=== PATIENT | male | born 1940 | race Caucasian/White ===

== ENCOUNTER → 2023-10-31 | Outpatient (REF) | payer MEDICARE, BC ==
[2023-10-31 13:46] LABS: IMMUNOGLOBULIN A 199.6 MG/DL (40-350); IMMUNOGLOBULIN G 920 MG/DL (650-1600)
== END ==
LOC: M LAB REF 12:44
PROVIDERS: ATTEND Internal Medicine Pulmonary Disease
DX: J47.9 Bronchiectasis, uncomplicated (principal)

== ENCOUNTER → 2023-12-16 | Outpatient (CLI) | payer MEDICARE, BC | LOC: EDUNIT# 11-20 11:00 → M CARPUL 10:29 | PROVIDERS: ATTEND Internal Medicine Pulmonary Disease | DX: R06.00 Dyspnea, unspecified (principal) ==

== ENCOUNTER → 2023-12-25 | Outpatient (CLI) | payer MEDICARE, BC ==
[~2023-12-25] MED LIST: METHACHOLINE KIT (6 VIAL.NEB PREMIX) INH ONE
== END ==
LOC: M CARPUL 13:23
PROVIDERS: ATTEND Internal Medicine Pulmonary Disease
DX: R06.00 Dyspnea, unspecified (principal)
CPT/HCPCS: 95070; J7674